=== PATIENT | female | born 2000 | race Caucasian/White ===

== ENCOUNTER 2023-06-27 19:43 | Emergency (ER) | payer BC ==
[~2023-06-27] VITALS: Ht 160 cm; Wt 58.1 kg
[2023-06-27] MEDS ORDERED: KETOROLAC 30 MG/ML VIAL IVP ONE (20:05)
[2023-06-27 20:16] VITALS: BP 118/74; PULSE 93; RESP 18; TEMP 97.9; O2SAT 99
[2023-06-27] MEDS: NACL 0.9% 1,000 ML IV ONE (20:36)
[2023-06-27 20:38] LABS: BASOPHILS % (AUTO) 0.4 % (0.0-2.0); EOSINOPHILS % (AUTO) 0.3 % (0.0-4.0); HEMATOCRIT 42.4 % (36-48); LYMPHOCYTES # (AUTO) 2.2 K/uL (2.5-16.5); MEAN CORPUSCULAR HEMOGLOBIN 31 pg (27-31); MEAN CORPUSCULAR HGB CONC 35 g/dL (33-37); MONOCYTES # (AUTO) 0.8 K/uL (0.8-1.0); MONOCYTES % (AUTO) 7.7 % (1.7-9.3); NEUTROPHILS # (AUTO) 7.8 K/uL (1.8-7.7); NEUTROPHILS % (AUTO) 71.6 % (42.2-75.2); PLATELET COUNT (AUTO) 206 K/uL (140-450); RED BLOOD CELL COUNT(AUTO) 4.76 MIL/uL (4.20-5.40); RED CELL DISTRIBUTION WIDTH 12.9 % (11.6-13.7)
[2023-06-27 20:42] LABS: ANION GAP 18.4 (8-16); CALCIUM 9.3 mg/dL (8.5-10.1); CARBON DIOXIDE 25.4 mmol/L (21-32); CREATININE 0.8 mg/dL (0.6-1.3)
[2023-06-27 20:44] LABS: POTASSIUM 2.8 mmol/L (3.5-5.1)
[2023-06-27 20:50] LABS: LACTIC ACID 1.7 mmol/L (0.4-2.0)
[2023-06-27] MEDS: KCL 20 MEQ IN 100 mL PREMIX 100 ML IV ONE (20:55)
[2023-06-27 21:35] LABS: APPEARANCE,URINE CLEAR (CLEAR); BILIRUBIN,URINE NEGATIVE (NEGATIVE); BLOOD, URINE 2+ (NEGATIVE); COLOR,URINE YELLOW (YELLOW); LEUKOCYTE ESTERASE ,URINE NEGATIVE (NEGATIVE); NITRITE, URINE NEGATIVE (NEGATIVE); PROTEIN,URINE NEGATIVE (NEGATIVE); UGLUCOSE NEGATIVE (NEGATIVE); UROBILINOGEN,URINE 0.2 EU/dL (0.2 - 1)
[2023-06-27] MEDS: POTASSIUM CHLORIDE 10 MEQ TABER PO ONE (21:35)
[2023-06-27 21:39] LABS: BACTERIA,URINE 1+ /HPF (None Seen); CALCIUM OXALATE CRYSTALS,UR 0-10 /HPF (None Seen); HYALINE CASTS, URINE 0-10 /LPF (None Seen); MUCUS,URINE 1+ /LPF (None Seen); SQUAMOUS EPITHELIAL CELL,UR 20-50 /LPF (0-3 (FEW)); TRICHOMONAS,URINE None Seen /HPF (None Seen); WBC,URINE 0-5 /HPF (0-5); YEAST,URINE None Seen /HPF (None Seen)
[2023-06-27] MEDS ORDERED: POTA10TA70 PO (21:48)
[2023-06-27] MEDS ORDERED: ONDA-188 PO (21:49)
[2023-06-27 22:07] VITALS: BP 118/74; PULSE 93; RESP 18; TEMP 97.9; O2SAT 99
== END 2023-06-27 22:07 | disposition home or self-care (01) ==
LOC: MED 19:43
DX: R55 Syncope and collapse (principal); E86.0 Dehydration; E87.6 Hypokalemia; Z79.899 Other long term (current) drug therapy
CPT/HCPCS: 36415; 80048; 81001; 81025; 83605; 85025; 87040; 93005; 96360; 99284; J7030

== ENCOUNTER 2023-10-20 12:20 | Emergency (ER) | payer BC ==
[~2023-10-20] VITALS: Ht 160 cm; Wt 63.2 kg
[~2023-10-20 12:20] MED LIST: ONDA-188 PO; POTA10TA70 PO
[2023-10-20 12:40] VITALS: BP 125/84; PULSE 96; RESP 18; TEMP 97.7; O2SAT 97
[2023-10-20] MEDS: ONDANSETRON 4 MG/2 ML VIAL IVP ONE ×2 (14:45→17:26)
[2023-10-20] MEDS: FAMOTIDINE 20 MG/2 ML VIAL IVP ONE ×2 (14:45→17:23)
[2023-10-20 15:00] LABS: BASOPHILS % (AUTO) 0.3 % (0.0-2.0); EOSINOPHILS % (AUTO) 0.3 % (0.0-4.0); HEMATOCRIT 45.2 % (36-48); HEMOGLOBIN 15.6 g/dL (12.0-16.0); LYMPHOCYTES # (AUTO) 2.6 K/uL (2.5-16.5); LYMPHOCYTES % (AUTO) 20.9 % (20.5-51.1); MEAN CORPUSCULAR HEMOGLOBIN 31 pg (27-31); MEAN CORPUSCULAR HGB CONC 35 g/dL (33-37); MEAN CORPUSCULAR VOLUME 89.6 fL (80-94); MONOCYTES # (AUTO) 1.2 K/uL (0.8-1.0); MONOCYTES % (AUTO) 9.3 % (1.7-9.3); NEUTROPHILS # (AUTO) 8.7 K/uL (1.8-7.7); NEUTROPHILS % (AUTO) 69.2 % (42.2-75.2); PLATELET COUNT (AUTO) 301 K/uL (140-450); RED BLOOD CELL COUNT(AUTO) 5.04 MIL/uL (4.20-5.40); RED CELL DISTRIBUTION WIDTH 13.3 % (11.6-13.7); WHITE BLOOD COUNT (AUTO) 12.6 K/uL (4.8-10.8)
[2023-10-20 15:13] LABS: ANION GAP 19.3 (8-16); CALCIUM 11.6 mg/dL (8.5-10.1); CARBON DIOXIDE 27.8 mmol/L (21-32); CREATININE 0.8 mg/dL (0.6-1.3); POTASSIUM 3.1 mmol/L (3.5-5.1)
[2023-10-20 15:19] LABS: ALBUMIN 5.4 g/dL (3.4-5.0); BILIRUBIN,DIRECT 0.1 mg/dL (0.0-0.3); TOTAL BILIRUBIN 0.7 mg/dL (0.0-1.0); TOTAL PROTEIN, SERUM 9.2 g/dL (6.4-8.2)
[2023-10-20] MEDS: NACL 0.9% 1,000 ML IV ONE (15:25)
[2023-10-20] MEDS: DEXT 5% / NACL 0.9% 500 ML IV ONE (15:41)
[2023-10-20] MEDS ORDERED: ONDANSETRON 4 MG/2 ML VIAL ONE (15:49)
[2023-10-20] MEDS ORDERED: FAMOTIDINE 20 MG/2 ML VIAL ONE (15:50)
[2023-10-20] MEDS: NACL 0.9% 1,000 ML IV SCH (15:57)
[2023-10-20 16:51] LABS: APPEARANCE,URINE CLOUDY (CLEAR); BILIRUBIN,URINE NEGATIVE (NEGATIVE); BLOOD, URINE TRACE-I (NEGATIVE); COLOR,URINE YELLOW (YELLOW); LEUKOCYTE ESTERASE ,URINE NEGATIVE (NEGATIVE); NITRITE, URINE NEGATIVE (NEGATIVE); PROTEIN,URINE NEGATIVE (NEGATIVE); UGLUCOSE NEGATIVE (NEGATIVE); UROBILINOGEN,URINE 0.2 EU/dL (0.2 - 1)
[2023-10-20] MEDS: POTASSIUM CHLORIDE 20% 40 MEQ/15 ML UDC PO ONE (16:53)
[2023-10-20 17:09] LABS: BACTERIA,URINE 1+ /HPF (None Seen); SQUAMOUS EPITHELIAL CELL,UR 0-3 (FEW) /LPF (0-3 (FEW)); WBC,URINE 0-5 /HPF (0-5)
[2023-10-20] MEDS: diphenhydrAMINE 50 MG/ML VIAL IVP ONE (17:31)
[2023-10-20] MEDS: METOCLOPRAMIDE 10 MG/2 ML INJ VIAL IVP ONE (17:35)
[2023-10-20 19:00] VITALS: BP 107/70; PULSE 107; RESP 18; TEMP 100; O2SAT 100
[2023-10-20] MEDS ORDERED: ONDA-188 SL (19:11)
[2023-10-20] MEDS ORDERED: FAMO-90 PO (19:11)
== END 2023-10-20 19:28 | disposition home or self-care (01) ==
LOC: MED 12:20
DX: R11.10 Vomiting, unspecified (principal); R19.7 Diarrhea, unspecified; E87.6 Hypokalemia; E86.0 Dehydration; F10.10 Alcohol abuse, uncomplicated; J45.909 Unspecified asthma, uncomplicated; F41.9 Anxiety disorder, unspecified; N20.0 Calculus of kidney; Z79.899 Other long term (current) drug therapy; Y90.9 Presence of alcohol in blood, level not specified
CPT/HCPCS: 36415; 80048; 80076; 81001; 81025; 83690; 85025; 96361; 96374; 96375; 99285; J1200; J2405; J2765; J3490; J7030; J7042; 96365

== ENCOUNTER 2023-12-07 23:50 | Emergency (ER) | payer BC ==
[~2023-12-07] VITALS: Ht 160 cm; Wt 63.5 kg
[~2023-12-07 23:50] MED LIST changes: +FAMO-90 PO; +ONDA-188 SL
[2023-12-08 00:20] VITALS: BP 127/77; PULSE 120; RESP 18; TEMP 98.5; O2SAT 96
[2023-12-08 01:02] LABS: BASOPHILS % (AUTO) 0.2 % (0.0-2.0); EOSINOPHILS % (AUTO) 0.2 % (0.0-4.0); HEMATOCRIT 42.2 % (36-48); HEMOGLOBIN 14.8 g/dL (12.0-16.0); LYMPHOCYTES # (AUTO) 0.9 K/uL (2.5-16.5); LYMPHOCYTES % (AUTO) 5.9 % (20.5-51.1); MEAN CORPUSCULAR HEMOGLOBIN 31 pg (27-31); MEAN CORPUSCULAR HGB CONC 35 g/dL (33-37); MEAN CORPUSCULAR VOLUME 87.8 fL (80-94); MONOCYTES # (AUTO) 0.7 K/uL (0.8-1.0); MONOCYTES % (AUTO) 4.5 % (1.7-9.3); NEUTROPHILS # (AUTO) 13.9 K/uL (1.8-7.7); NEUTROPHILS % (AUTO) 89.2 % (42.2-75.2); PLATELET COUNT (AUTO) 281 K/uL (140-450); RED BLOOD CELL COUNT(AUTO) 4.81 MIL/uL (4.20-5.40); RED CELL DISTRIBUTION WIDTH 14.4 % (11.6-13.7); WHITE BLOOD COUNT (AUTO) 15.6 K/uL (4.8-10.8)
[2023-12-08 01:08] LABS: ANION GAP 22.9 (8-16); CALCIUM 10.3 mg/dL (8.5-10.1); CARBON DIOXIDE 21.1 mmol/L (21-32)
[2023-12-08] MEDS: FAMOTIDINE 20 MG TAB PO ONE (01:14)
[2023-12-08 01:15] LABS: ALBUMIN 5.2 g/dL (3.4-5.0); BILIRUBIN,DIRECT 0.1 mg/dL (0.0-0.3); TOTAL BILIRUBIN 0.4 mg/dL (0.0-1.0); TOTAL PROTEIN, SERUM 9.1 g/dL (6.4-8.2)
[2023-12-08] MEDS: NACL 0.9% 1,000 ML IV ONE (01:43)
[2023-12-08] MEDS: ONDANSETRON 4 MG ODT PO ONE (01:43)
[2023-12-08] MEDS: ONDANSETRON 4 MG/2 ML VIAL IVP ONE (01:44)
[2023-12-08] MEDS: FAMOTIDINE 20 MG/2 ML VIAL IVP ONE (01:46)
[2023-12-08 02:28] LABS: APPEARANCE,URINE CLEAR (CLEAR); BILIRUBIN,URINE NEGATIVE (NEGATIVE); BLOOD, URINE TRACE-I (NEGATIVE); COLOR,URINE YELLOW (YELLOW); LEUKOCYTE ESTERASE ,URINE NEGATIVE (NEGATIVE); NITRITE, URINE NEGATIVE (NEGATIVE); PROTEIN,URINE 2+ (NEGATIVE); UGLUCOSE NEGATIVE (NEGATIVE); UROBILINOGEN,URINE 0.2 EU/dL (0.2 - 1)
[2023-12-08 02:31] LABS: BACTERIA,URINE >30 (MANY) /HPF (None Seen); MUCUS,URINE 1+ /LPF (None Seen); RBC,URINE 0-5 /HPF (0-5); SQUAMOUS EPITHELIAL CELL,UR 0-3 (FEW) /LPF (0-3 (FEW)); WBC,URINE 0-5 /HPF (0-5)
[2023-12-08] MEDS ORDERED: ONDA-188 SL (03:02)
[2023-12-08] MEDS ORDERED: FAMO-90 PO (03:02)
[2023-12-08] MEDS ORDERED: OMEP20EC11 PO (03:02)
[2023-12-08 03:20] VITALS: BP 113/76; PULSE 94; RESP 17; TEMP 98.2; O2SAT 98
== END 2023-12-08 03:20 | disposition home or self-care (01) ==
LOC: MED 23:50
DX: K29.70 Gastritis, unspecified, without bleeding (principal); J45.909 Unspecified asthma, uncomplicated; F41.9 Anxiety disorder, unspecified; Z79.1 Long term (current) use of non-steroidal anti-inflammatories (NSAID); Z79.899 Other long term (current) drug therapy
CPT/HCPCS: 36415; 80048; 80076; 81001; 81025; 83690; 85025; 87086; 96361; 96374; 96375; 99284; J2405; J3490; J7030; Q0162

== ENCOUNTER 2023-12-09 00:50 | Emergency (ER) | payer BC ==
[~2023-12-09] VITALS: Ht 160 cm; Wt 63.5 kg
[~2023-12-09 00:50] MED LIST changes: +OMEP20EC11 PO
[2023-12-09 01:03] VITALS: BP 119/89; PULSE 91; RESP 18; TEMP 98.1; O2SAT 98
[2023-12-09] MEDS: ONDANSETRON 4 MG/2 ML VIAL IVP ONE (03:35)
[2023-12-09] MEDS: FAMOTIDINE 20 MG/2 ML VIAL IVP ONE (03:35)
[2023-12-09] MEDS: NACL 0.9% 1,000 ML IV ONE (03:36)
[2023-12-09 05:33] VITALS: BP 122/89; PULSE 92; RESP 17; TEMP 98.1; O2SAT 98
== END 2023-12-09 05:33 | disposition home or self-care (01) ==
LOC: MED 00:50
DX: R11.2 Nausea with vomiting, unspecified (principal); R10.13 Epigastric pain; E86.0 Dehydration; F41.9 Anxiety disorder, unspecified; J45.909 Unspecified asthma, uncomplicated; Z79.1 Long term (current) use of non-steroidal anti-inflammatories (NSAID); Z79.899 Other long term (current) drug therapy
CPT/HCPCS: 96361; 96374; 96375; 99284; J2405; J3490; J7030